=== PATIENT | male | born 1990 | race Caucasian/White ===

== ENCOUNTER 2020-08-21 18:49 | Emergency (ER) | payer BC ==
[2020-08-21 19:17] VITALS: RESP 18; TEMP 98.9
[2020-08-21] MEDS ORDERED: SODIUM CHLORIDE 0.9% 1,000 ML IV STA (20:51)
--- NOTE | 2020-08-21 20:58 | ED ---
Abdominal Pain HPI - General Chief Complaint: Abdominal Pain Stated Complaint: hernia Time Seen by Provider: 08/21/20 20:44 Source: patient Mode of arrival: ambulatory Limitations: no limitations - History of Present Illness Initial Comments: 29-year-old male presents to the emergency department with a chief complaint of a hernia. States he's developed a hernia over the last 15 years but has never done anything about it. States over the recent few months he develop increased pain and swelling to the region. States this is a ventral hernia in is e xacerbated, grows bigger in size whenever he standing or straining. Reports the swelling and pain is alleviated whenever he lays down supine. He denies any nausea vomiting or constipation. He denies any fevers or chills. - Related Data Allergies Allergy/AdvReac Type Severity Reaction Status Date / Time No Known Allergies Allergy Verified 08/21/20 19:17 Review of Systems ROS Statement: Those systems with pertinent positive or pertinent negative responses have been documented in the HPI. ROS Other: All systems not noted in ROS Statement are negative. Past Medical History Additional Past Medical History / Comment(s): hernia History of Any Multi-Drug Resistant Organisms: None Reported Additional Past Surgical History / Comment(s): sx as infant Past Psychological History: No Psychological Hx Reported Smoking Status: Current every day smoker Past Alcohol Use History: Rare Past Drug Use History: Marijuana General Exam Limitations: no limitations General appearance: alert, in no apparent distress Head exam: Present: atraumatic, normocephalic, normal inspection Eye exam: Present: normal appearance, PERRL, EOMI Pupils: Present: normal accommodation ENT exam: Present: normal exam, normal oropharynx, mucous membranes moist Neck exam: Present: normal inspection, full ROM. Absent: tenderness, lymphadenopathy Respiratory exam: Present: normal lung sounds bilaterally. Absent: respiratory distress Cardiovascular Exam: Present: regular rate, normal rhythm, normal heart sounds. Absent: systolic murmur GI/Abdominal exam: Present: soft, tenderness, hernia (Ventral hernia). Absent: distended, guarding, rebound, rigid Extremities exam: Present: normal inspection, full ROM, normal capillary refill. Absent: tenderness, pedal edema, joint swelling Back exam: Present: normal inspection, full ROM. Absent: tenderness, CVA tenderness (R), CVA tenderness (L) Neurological exam: Present: alert, oriented X3 Psychiatric exam: Present: normal affect, normal mood Skin exam: Present: warm, dry, intact, normal color Course Vital Signs 08/21/20 08/21/20 08/21/20 19:13 21:08 22:11 Temperature 98.9 F Pulse Rate 98 91 90 Respiratory 18 18 18 Rate Blood Pressure 154/102 165/89 132/89 O2 Sat by Pulse 97 95 96 Oximetry Medical Decision Making - Medical Decision Making 29-year-old male presents to the emergency department with a chief complaint of a hernia. On physical examination, definitive protrusion in the ventral abdomen. Laboratory work is unremarkable. CT of abdomen and pelvis shows large anterior abdominal wall ventral hernia containing fat. It was able to reduce it after some symptomatic relief. Patient will follow-up with Dr. snowden per request. Advised to avoid excessive abdominal straining. Strict return parameters were thoroughly discussed with patient was understanding and agreeable. Case discussed with Dr. Srivastava - Lab Data Result diagrams: 08/21/20 21:00 08/21/20 21:00 Lab Results 08/21/20 08/21/20 08/21/20 Range/Units 21:00 21:00 21:00 WBC 11.4 H (3.8-10.6) k/uL RBC 5.31 (4.30-5.90) m/uL Hgb 16.1 (13.0-17.5) gm/dL Hct 48.3 (39.0-53.0) % MCV 91.0 (80.0-100.0) fL MCH 30.4 (25.0-35.0) pg MCHC 33.3 (31.0-37.0) g/dL RDW 13.1 (11.5-15.5) % Plt Count 298 (150-450) k/uL MPV 6.5 Neutrophils % 70 % Lymphocytes % 21 % Monocytes % 5 % Eosinophils % 2 % Basophils % 1 % Neutrophils # 8.0 H (1.3-7.7) k/uL Lymphocytes # 2.4 (1.0-4.8) k/uL Monocytes # 0.6 (0-1.0) k/uL Eosinophils # 0.2 (0-0.7) k/uL Basophils # 0.1 (0-0.2) k/uL Sodium 139 (137-145) mmol/L Potassium 4.7 (3.5-5.1) mmol/L Chloride 105 (98-107) mmol/L Carbon Dioxide 27 (22-30) mmol/L Anion Gap 7 mmol/L BUN 10 (9-20) mg/dL Creatinine 0.71 (0.66-1.25) mg/dL Est GFR (CKD-EPI)AfAm >90 (>60 ml/min/1.73 sqM) Est GFR (CKD-EPI)NonAf >90 (>60 ml/min/1.73 sqM) Glucose 104 H (74-99) mg/dL Plasma Lactic Acid Pito 1.1 (0.7-2.0) mmol/L Calcium 9.5 (8.4-10.2) mg/dL Total Bilirubin 0.3 (0.2-1.3) mg/dL AST 36 (17-59) U/L ALT 38 (4-49) U/L Alkaline Phosphatase 133 H (38-126) U/L Total Protein 7.0 (6.3-8.2) g/dL Albumin 4.1 (3.5-5.0) g/dL Lipase 110 (23-300) U/L Disposition Clinical Impression: Ventral hernia Disposition: HOME SELF-CARE Condition: Stable Instructions (If sedation given, give patient instructions): Ventral Hernia (ED), Ventral Hernia Repair (DC) Additional Instructions: Follow-up with a general surgeon. Return to emergency department if symptoms worsen. Is patient prescribed a controlled substance at d/c from ED?: No Referrals: None,Stated [Primary Care Provider] - 1-2 days Nasir Snowden DO [Doctor of Osteopathic Medicine] - 1-2 days Time of Disposition: 22:48
[2020-08-21 21:25] LABS: Basophils # (A) 0.1 k/uL (0-0.2); Basophils % (A) 1 %; Eosinophils # (A) 0.2 k/uL (0-0.7); Eosinophils % (A) 2 %; HCT 48.3 % (39.0-53.0); HGB 16.1 gm/dL (13.0-17.5); Lymphocytes # (A) 2.4 k/uL (1.0-4.8); Lymphocytes % (A) 21 %; MCH 30.4 pg (25.0-35.0); MCHC 33.3 g/dL (31.0-37.0); Mean Platelet Volume 6.5; Monocytes # (A) 0.6 k/uL (0-1.0); Monocytes % (A) 5 %; Neutrophils % (A) 70 %; Platelet Count 298 k/uL (150-450); RBC 5.31 m/uL (4.30-5.90); RDW 13.1 % (11.5-15.5); WBC 11.4 k/uL (3.8-10.6)
[2020-08-21 21:28] LABS: ALT 38 U/L (4-49); AST 36 U/L (17-59); African American GFR (CKD) >90 (>60 ml/min/1.73 sqM); Albumin 4.1 g/dL (3.5-5.0); Alkaline Phosphatase 133 U/L (38-126); Anion Gap 7 mmol/L; Blood Urea Nitrogen 10 mg/dL (9-20); Calcium 9.5 mg/dL (8.4-10.2); Carbon Dioxide 27 mmol/L (22-30); Chloride 105 mmol/L (98-107); Glucose 104 mg/dL (74-99); Lipase 110 U/L (23-300); Non-African American GFR(CKD) >90 (>60 ml/min/1.73 sqM); Potassium 4.7 mmol/L (3.5-5.1); Sodium 139 mmol/L (137-145); Total Bilirubin 0.3 mg/dL (0.2-1.3)
[2020-08-21] MEDS ORDERED: MORPHINE SULFATE 4 MG/ML SYRINGE IVP STA (22:05)
[2020-08-21 22:11] VITALS: BP 132/89; PULSE 90
--- NOTE | 2020-08-21 22:35 | CT ---
EXAMINATION TYPE: CT abdomen pelvis w con DATE OF EXAM: 08/21/2020 COMPARISON: None HISTORY: abd hernia CT DLP: 2314.3 mGycm Automated exposure control for dose reduction was used. CONTRAST: Performed with IV Contrast, patient injected with 100 mL of Isovue 370. Lung bases are clear. There is no pleural effusion. Heart size is normal. There is no pericardial eff usion. Liver spleen pancreas stomach gallbladder appear intact. Bile ducts are not dilated. There is epigast kirstie ventral hernia that measures 13 x 6.5 cm and contains fat. This is adjacent to the umbilicus. The re is 3 x 2 cm umbilical hernia that contains fat. Bladder distends smoothly. There is no inguinal hernia. There is no free fluid in the pelvis. Kidneys show satisfactory contrast opacification. There is no hydronephrosis. There is no adrenal mas s. Delayed images show normal renal excretion. There is no retroperitoneal adenopathy. There is no mesenteric edema. There is no ascites or free air. There is no bowel obstruction. Appendi x appears normal. The lumbar vertebra have normal alignment. Posterior elements are intact. There is no compression fra cture. Bony pelvis is intact. The hip joints are intact. IMPRESSION: Large anterior abdominal wall ventral hernia containing fat. No bowel obstruction. Umbilical hernia. No acute abnormality of the abdomen pelvis.
== END 2020-08-21 22:58 | disposition home or self-care (01) ==
LOC: EC 18:49
DX: K43.9 Ventral hernia without obstruction or gangrene (principal); F17.200 Nicotine dependence, unspecified, uncomplicated; F12.90 Cannabis use, unspecified, uncomplicated
CPT/HCPCS: 36415; 80053; 83605; 83690; 85025; 74177; 99284; 96374; J2270; Q9967

== ENCOUNTER 2024-03-17 16:51 | Emergency (ER) | payer BC, OTHER ==
[2024-03-17 16:58] VITALS: RESP 18
--- NOTE | 2024-03-17 17:20 | ED ---
Back Pain HPI - General Chief Complaint: Back Pain/Injury Stated Complaint: back pain Time Seen by Provider: 03/17/24 17:01 Source: patient - History of Present Illness Initial Comments: 33-year-old male presenting with chief complaint of lower back pain. Patient reports that just before Court he slipped and fell getting out of his truck, his legs slipped out from underneath him and he fell onto his buttocks. He was having tailbone pain for few days but then it seemed to be improving. For the past few days the pain has been getting worse. He denies any reinjury. He denies any loss of bowel or bladder control or saddle paresthesia. He was seen urgent care yesterday and was given a steroid and muscle relaxer. He reports that the muscle relaxer is helping, he notices that within an hour after taking the steroid he feels sweaty, has a headache, and feels nauseous. No abdominal pain. No fever. Pain is worse with particular motions or positions. - Related Data Allergies Allergy/AdvReac Type Severity Reaction Status Date / Time No Known Allergies Allergy Verified 03/17/24 16:58 Review of Systems ROS Statement: Those systems with pertinent positive or pertinent negative responses have been documented in the HPI. ROS Other: All systems not noted in ROS Statement are negative. Past Medical History Additional Past Medical History / Comment(s): hernia History of Any Multi-Drug Resistant Organisms: None Reported Additional Past Surgical History / Comment(s): sx as Past Psychological History: No Psychological Hx Reported Smoking Status: Current every day smoker Past Alcohol Use History: Rare Past Drug Use History: Marijuana General Exam Limitations: no limitations General appearance: alert, in no apparent distress Head exam: Present: atraumatic, normocephalic, normal inspection Eye exam: Present: normal appearance, EOMI Neck exam: Present: normal inspection. Absent: meningismus Respiratory exam: Absent: respiratory distress Extremities exam: Present: normal inspection Back exam: Present: normal inspection, tenderness Neurological exam: Present: alert, oriented X3 Psychiatric exam: Present: normal affect, normal mood Skin exam: Present: warm, dry, normal color Course Vital Signs 03/17/24 03/17/24 16:54 19:09 Temperature 98.6 F 98.4 F Pulse Rate 103 H 98 Respiratory 18 18 Rate Blood Pressure 163/92 150/89 O2 Sat by Pulse 96 97 Oximetry Medical Decision Making - Medical Decision Making Was pt. sent in by a medical professional or institution (, [facility], [facility], urgent care, hospital, or shelter...) When possible be specific @ -No Did you speak to anyone other than the patient for history (EMS, parent, family, police, friend...)? What history was obtained from this source @ -No Did you review nursing and triage notes (agree or disagree)? Why? @ -I reviewed and agree with nursing and triage notes Were old charts reviewed (outside hosp., previous admission, EMS record, old EKG, old radiological studies, urgent care reports/EKG's, shelter records)? Report findings @ -No old charts were reviewed Differential Diagnosis (chest pain, altered mental status, abdominal pain women, abdominal pain men, vaginal bleeding, weakness, fever, dyspnea, syncope, headache, dizziness, GI bleed, back pain, seizure, CVA, palpatations, mental health, musculoskeletal)? @ - MDM Differential Back Pain: Strain, zoster, cauda equina syndrome, epidural abscess, vertebral osteomyelitis, discitis, fracture, subluxation, disc herniation, DJD, spinal stenosis, dissection, AAA, pancreatitis, peptic ulcer disease, pyelonephritis, kidney stone this is not meant to be an all-inclusive list. EKG interpreted by me (3pts min.). @ -As above X-rays interpreted by me (1pt min.). @ -X-ray shows no acute fracture. Mild multilevel disc degeneration CT interpreted by me (1pt min.). @ -None done U/S interpreted by me (1pt. min.). @ -None done What testing was considered but not performed or refused? (CT, X-rays, U/S, labs)? Why? @ -None What meds were considered but not given or refused? Why? @ -None Did you discuss the management of the patient with other professionals (professionals i.e. [facility] [employer], [facility], lab, RT, psych nurse, social sciences lecturer, cell operation supervisor, teacher, community development officer, clinical case manager)? Give summary @ -No Was smoking cessation discussed for >3mins.? @ -No Was critical care preformed (if so, how long)? @ -No Were there social determinants of health that impacted care today? How? (Homelessness, low income, unemployed, alcoholism, drug addiction, transportation, low edu. Level, literacy, decrease access to med. care, fci, rehab)? @ -No Was there de-escalation of care discussed even if they declined (Discuss DNR or withdrawal of care, Hospice)? DNR status @ -No What co-morbidities impacted this encounter? (DM, HTN, Smoking, COPD, CAD, Cancer, CVA, ARF, Chemo, Hep., AIDS, mental health diagnosis, sleep apnea, morbid obesity)? @ -None Was patient admitted / discharged? Hospital course, mention meds given and route, prescriptions, significant lab abnormalities, going to OR and other pertinent info. @ -33-year-old male presenting with chief complaint of lower back and tailbone pain. States that a few weeks ago he had a slip and fall. Pain was improving but is not getting worse again. No red flag symptoms. History and physical examination are conducted. Patient has improvement with muscle relaxers. X- rays negative for fracture. There is mild multilevel degenerative disc disease. Patient is educated on today's findings and supportive management at home. Follow-up with PCP. Report back to ER with any new or worsening symptoms. Discussed return parameters and answered all questions. Patient conveyed verbal understanding and agreed to the plan. I discussed this case in detail with my attending Dr. Ambrocio Undiagnosed new problem with uncertain prognosis? @ -No Drug Therapy requiring intensive monitoring for toxicity (Heparin, Nitro, Insulin, Cardizem)? @ -No Were any procedures done? @ -No Diagnosis/symptom? @ -Lumbar strain Acute, or Chronic, or Acute on Chronic? @ -Acute Uncomplicated (without systemic symptoms) or Complicated (systemic symptoms)? @ -Uncomplicated Side effects of treatment? @ -No Exacerbation, Progression, or Severe Exacerbation? @ -No Poses a threat to life or bodily function? How? (Chest pain, USA, OR, pneumonia, PE, COPD, DKA, ARF, appy, cholecystitis, CVA, Diverticulitis, Homicidal, Suicidal, threat to staff... and all critical care pts) @ -Low likelihood Disposition Clinical Impression: Strain of lumbar region Disposition: HOME SELF-CARE Condition: Good Instructions (If sedation given, give patient instructions): Acute Low Back Pain (ED) Additional Instructions: Follow-up with PCP. Report back to ER with any new or worsening symptoms. You may continue taking your muscle relaxer as prescribed. Take Motrin and Tylenol as needed. [id number]-[id number] lidocaine patches may be helpful as well. Is patient prescribed a controlled substance at d/c from ED?: No Referrals: Jose Lomeli MD [Primary Care Provider] - 1-2 days Time of Disposition: 18:50
--- NOTE | 2024-03-17 18:24 | XR ---
EXAMINATION TYPE: XR lumbosacral spine min 4V DATE OF EXAM: 03/17/2024 6:03 PM COMPARISON: None CLINICAL INDICATION: Male, 33 years old with history of tail bone pain; [facility] TECHNIQUE: XR lumbosacral spine min 4V - Frontal, lateral , bilateral oblique and coned in L5-S1 late ral views of the spine. FINDINGS: No evidence of any acute osseous pathology. No evidence of loss of vertebral body height i s seen. There is normal alignment of the lumbar vertebral bodies. Mild scattered disc space narrowing . Multilevel marginal osteophyte formation throughout the visualized spine. There is facet joint arth ropathy throughout the spine. Scattered at least mild neural foraminal stenosis. IMPRESSION: 1. No acute fracture. 2. Mild multilevel disc degeneration. [facility], , 03/17/2024 6:22 PM
[2024-03-17] MEDS: LIDOCAINE 4% PATCH TOPICAL ONE (19:02)
[2024-03-17 19:12] VITALS: BP 150/89; PULSE 98; TEMP 98.4
== END 2024-03-17 19:12 | disposition home or self-care (01) ==
LOC: EC 16:51
DX: S39.012A Strain of muscle, fascia and tendon of lower back, initial encounter (principal); F17.200 Nicotine dependence, unspecified, uncomplicated; W01.0XXA Fall on same level from slipping, tripping and stumbling without subsequent striking against object, initial encounter
CPT/HCPCS: 72110; 99283

== ENCOUNTER 2024-03-30 10:39 | Emergency (ER) | payer OTHER ==
[2024-03-30 11:28] LABS: Basophils % (A) 0 %; Eosinophils # (A) 0.2 k/uL (0-0.7); Eosinophils % (A) 2 %; HCT 48.1 % (39.0-53.0); HGB 15.8 gm/dL (13.0-17.5); Lymphocytes % (A) 19 %; MCH 30.6 pg (25.0-35.0); MCHC 32.9 g/dL (31.0-37.0); MCV 93.2 fL (80.0-100.0); Mean Platelet Volume 6.9; Monocytes # (A) 0.5 k/uL (0-1.0); Monocytes % (A) 5 %; Neutrophils # (A) 7.5 k/uL (1.3-7.7); Neutrophils % (A) 73 %; Platelet Count 286 k/uL (150-450); RBC 5.16 m/uL (4.30-5.90); RDW 12.5 % (11.5-15.5); WBC 10.4 k/uL (3.8-10.6)
[2024-03-30] MEDS: SODIUM CHLORIDE 0.9% 1,000 ML IV STA (11:43)
[2024-03-30] MEDS: PANTOPRAZOLE 40 MG/10 ML VIAL IVP STA (11:43)
[2024-03-30] MEDS: ONDANSETRON 4 MG/2 ML VIAL IVP STA (11:43)
[2024-03-30 11:50] LABS: INR 0.9 (<1.2); Partial Thromboplastin Time 26.2 sec (22.0-30.0); Prothrombin Time 9.9 sec (10.0-12.5)
--- NOTE | 2024-03-30 12:03 | CT ---
EXAMINATION TYPE: CT abdomen pelvis w con DATE OF EXAM: 03/30/2024 11:45 AM COMPARISON: 08/21/2020 CLINICAL INDICATION: Male, 33 years old with history of abdominal pain. Left side. Hx of large hernia , Lt sided pain, large hernia, TECHNIQUE: Contiguous axial scanning of the abdomen and pelvis following administration of 100 ml Iso ricardo 300 IV contrast. Delayed images through the kidneys and coronal/sagittal reconstructions perform ed. CT DLP: 2700 mGycm, Automated exposure control for dose reduction was used. FINDINGS: Heart normal size without pericardial effusion. Lung bases clear without pleural effusion. Liver enlarged at 19.6 cm. There may be some underlying fatty infiltration of liver. Portal venous sy stem is patent. No biliary ductal dilatation. Gallbladder, adrenal glands, kidneys, spleen, and pancreas within normal limits. There is redemonstrated midline epigastric ventral abdominal wall hernia. Hernia sac possibly measu ring up to 10.7 cm wide and 3.9 cm craniocaudal. This extends through a narrow abdominal wall defect measuring 1.3 cm. Mild fat stranding at the neck of the hernia. Not significantly changed in size. A larger supraumbilical ventral midline hernia characterized by rectus diastases up to 8.2 cm wide ve rsus 4.5 cm, previously. There is a large hernia sac measuring 22.8 x 20.5 cm versus 13.1 x 11.9 cm, previously. The hernia contains nonobstructed small bowel and mesenteric fat as well as the distal as pect of the appendix. Mild stool burden. Redundant sigmoid colon. No pericolonic inflammatory change. Mild circumference of bladder wall thickening. No abnormal fluid collection in the pelvis or pelvic l ymphadenopathy. Bones: No osseous destructive process. IMPRESSION: 1. LARGE SUPRAUMBILICAL VENTRAL MIDLINE ABDOMINAL WALL HERNIA EXTENDING THROUGH AN 8.2 CM WIDE RECTUS DIASTASIS. The diastasis previously measured 4.5 cm wide. The hernia sac contains nonobstructed smal l bowel loops. 2. Smaller ventral epigastric midline hernia containing omental fat measuring 10.7 x 3.9 cm through a narrow 1.3 cm wide abdominal wall defect. Not significantly changed. Some fat stranding at the neck of the hernia may reflect mild inflammation. 3. Mild circumferential bladder wall thickening may be chronic for the patient. Correlate to exclude cystitis. [facility], , 03/30/2024 12:01 PM
[2024-03-30 12:33] LABS: ALT 40 U/L (4-49); AST 27 U/L (17-59); African American GFR (CKD) >90 (>60 ml/min/1.73 sqM); Alkaline Phosphatase 118 U/L (38-126); Amylase 55 U/L (30-110); Anion Gap 8 mmol/L; Blood Urea Nitrogen 12 mg/dL (9-20); Calcium 9.5 mg/dL (8.4-10.2); Carbon Dioxide 25 mmol/L (22-30); Chloride 107 mmol/L (98-107); Glucose 95 mg/dL (74-99); Lipase 149 U/L (23-300); Non-African American GFR(CKD) >90 (>60 ml/min/1.73 sqM); Potassium 4.6 mmol/L (3.5-5.1); Sodium 140 mmol/L (137-145); Total Bilirubin 0.4 mg/dL (0.2-1.3); Total Protein 6.8 g/dL (6.3-8.2)
--- NOTE | 2024-03-30 12:58 | ED ---
General Adult HPI - General Chief complaint: Abdominal Pain Stated complaint: Abd pain Time Seen by Provider: 03/30/24 11:00 Source: patient, RN notes reviewed, old records reviewed Mode of arrival: ambulatory Limitations: no limitations - History of Present Illness Initial comments: Patient is a 33-year-old male with past medical history remarkable for 2 significantly large anterior wall abdominal hernias presents emergency department complaining of multiple weeks of a crampy abdominal pain that comes and goes. Currently does not have the pain. States is usually when he awakens in the morning. Presented to urgent care who recommended he come to the ER for further evaluation. Currently is being followed by a surgeon at [facility] for bariatric surgery and hernia repair. States he has follow-up soon with this surgeon. Today states he had the pain again which is why presented for further evaluation. Only significant past medical history is prior abdominal surgery at 2 weeks old for pyloric stenosis. He has no other acute complaints at this time. No change in bowel habits. No change in eating habits. Nausea but no significant emesis. No fevers or chills. No urinary complaints. At urgent care they did obtain a urine dipstick which was normal per patient. Presents for further evaluation.Patient currently asymptomatic. Patient has noticed some bright red blood in his stool occasionally over the last month but nothing recently. - Related Data Previous Rx's Medication Instructions Recorded Dicyclomine [Bentyl] 10 mg PO TID PRN 7 Days #21 capsule 03/30/24 Allergies Allergy/AdvReac Type Severity Reaction Status Date / Time No Known Allergies Allergy Verified 03/30/24 10:43 Review of Systems ROS Statement: Those systems with pertinent positive or pertinent negative responses have been documented in the HPI. Review of Systems: CONST: Denies fever EYES: Denies blurry vision ENT: Denies nasal congestion C/V: Denies Chest pain RESP: Denies shortness of breath GI: Denies abdominal pain : Denies dysuria SKIN: Denies rash. MSK: Denies joint pain. NEURO: Denies headache ROS Other: All systems not noted in ROS Statement are negative. Past Medical History Additional Past Medical History / Comment(s): hernia, Pyloric Stenosis History of Any Multi-Drug Resistant Organisms: None Reported Additional Past Surgical History / Comment(s): sx as infant Past Psychological History: No Psychological Hx Reported Smoking Status: Current every day smoker Past Alcohol Use History: Rare Past Drug Use History: Marijuana General Exam - General Exam Comments Initial Comments: General: Appears in no acute distress. HEAD: Normal with no signs of head trauma. EYES: PERRLA, EOMI, conjunctiva normal, no discharge. ENT: Hearing grossly intact, normal oropharynx. RESPIRATORY: Clear breath sounds bilaterally. No wheezes, rales, or rhonchi. C/V: Regular rate and rhythm. S1 and S2 auscultated, peripheral pulses 2+ and intact throughout ABD: Abdomen has a large ventral hernia and umbilical hernia present. No tenderness to palpation of the abdominal wall. No guarding or rebound tenderness. Distention in the hernia which is chronic otherwise soft abdomen. EXT: No obvious deformity. SKIN: No rashes or lesions observed on exposed skin. NEURO: Alert and oriented x 4. Limitations: no limitations Course Vital Signs 03/30/24 10:40 Temperature 98.2 F Pulse Rate 83 Respiratory 20 Rate Blood Pressure 163/109 O2 Sat by Pulse 99 Oximetry Medical Decision Making - Medical Decision Making Was pt. sent in by a medical professional or institution (, PA, MIDDLE SCHOOL GUIDANCE COUNSELOR, urgent care, hospital, or alf...) When possible be specific @ -No Did you speak to anyone other than the patient for history (EMS, parent, family, police, friend...)? What history was obtained from this source @ -No Did you review nursing and triage notes (agree or disagree)? Why? @ -I reviewed and agree with nursing and triage notes Were old charts reviewed (outside hosp., previous admission, EMS record, old EKG , old radiological studies, urgent care reports/EKG's, alf records)? Report findings @ -No old charts were reviewed Differential Diagnosis (chest pain, altered mental status, abdominal pain women, abdominal pain men, vaginal bleeding, weakness, fever, dyspnea, syncope, headache, dizziness, GI bleed, back pain, seizure, CVA, palpatations, mental health, musculoskeletal)? @ -Differential Abdominal Pain Men: Appendicitis, cholecystitis, diverticulosis, ischemic bowel, pancreatitis, hep atitis, UTI, gastroenteritis, AAA, incarcerated hernia, bowel obstruction, constipation, inflammatory bowel, hepatitis, peptic ulcer disease, splenic infarction, perforated viscus, testicular torsion, this is not meant to be an all-inclusive list EKG interpreted by me (3pts min.). @ -None done X-rays interpreted by me (1pt min.). @ -None done CT interpreted by me (1pt min.). @ -CT abdomen pelvis revealed the 2 large hernias that are relatively uncomplicated. No obvious evidence of small bowel obstruction there may be some mild circumferential bladder wall thickening that may be chronic. U/S interpreted by me (1pt. min.). @ -None done What testing was considered but not performed or refused? (CT, X-rays, U/S, labs)? Why? @ -None What meds were considered but not given or refused? Why? @ -None Did you discuss the management of the patient with other professionals (professionals i.e. , PA, MIDDLE SCHOOL GUIDANCE COUNSELOR, lab, RT, psych nurse, social media project manager, cosmetics counter manager, teacher, business banking officer, pillowcase folder)? Give summary @ -No Was smoking cessation discussed for >3mins.? @ -No Was critical care preformed (if so, how long)? @ -No Were there social determinants of health that impacted care today? How? (H omelessness, low income, unemployed, alcoholism, drug addiction, transportation, low edu. Level, literacy, decrease access to med. care, nursing home, rehab)? @ -No Was there de-escalation of care discussed even if they declined (Discuss DNR or withdrawal of care, Hospice)? DNR status @ -No What co-morbidities impacted this encounter? (DM, HTN, Smoking, COPD, CAD, Cancer, CVA, ARF, Chemo, Hep., AIDS, mental health diagnosis, sleep apnea, morbid obesity)? @ -Chronic abdominal wall hernias Was patient admitted / discharged? Hospital course, mention meds given and route, prescriptions, significant lab abnormalities, going to OR and other pertinent info. @ -Patient presents to the emergency department complaining of acute on chronic abdominal pain. Has a history of chronic hernias. Currently asymptomatic. Vital signs are within acceptable limits. We will obtain abdominal laboratory studies as well as CT abdomen pelvis. He declines analgesia medications. He will be given IV fluids, Zofran, Protonix. Urinalysis was done at urgent care and he states it was normal. Laboratory studies all returned within acceptable limits. This includes normal lactic acid. CT imaging reveals the 2 known large ventral wall hernias that are going to be addressed by his surgeon. No evidence of strangulation or other complication. Patient does have a thickened bladder wall which is likely chronic. He has no cystitis symptoms and urinalysis at urgent care was within normal limits. Discussed results with patient. He remains asymptomatic. He will be given a prescription for Bentyl instruction and follow-up with the surgeon in the next week or so. Follow-up with PCP in the next 1 to 3 days. Return if any worsening symptoms. I will provide the patient with a prescription for Bentyl. I instructed the patient to follow up with their PCP in the next 1-3 days.. I explained that the patient should return to the emergency department if they experience any worsening symptoms. Strict return precautions were discussed with the patient. The patient expressed understanding of these instructions. I answered all questions that the patient had. The patient was discharged home in good condition with their prescriptions and follow up information. Undiagnosed new problem with uncertain prognosis? @ -No Drug Therapy requiring intensive monitoring for toxicity (Heparin, Nitro, Insulin, Cardizem)? @ -No Were any procedures done? @ -No Diagnosis/symptom? @ -Abdominal pain of unknown etiology, chronic hernias Acute, or Chronic, or Acute on Chronic? @ -Acute Uncomplicated (without systemic symptoms) or Complicated (systemic symptoms)? @ -Uncomplicated Side effects of treatment? @ -No Exacerbation, Progression, or Severe Exacerbation? @ -No Poses a threat to life or bodily function? How? (Chest pain, [place], [place], pneumonia, PE, COPD, DKA, ARF, appy, cholecystitis, CVA, Diverticulitis, Homicidal, Suicidal, threat to staff... and all critical care pts) @ -Unlikely at this time - Lab Data Result diagrams: 03/30/24 11:18 03/30/24 11:18 Lab Results 03/30/24 03/30/24 03/30/24 Range/Units 11:18 11:18 11:18 WBC 10.4 (3.8-10.6) k/uL RBC 5.16 (4.30-5.90) m/uL Hgb 15.8 (13.0-17.5) gm/dL Hct 48.1 (39.0-53.0) % MCV 93.2 (80.0-100.0) fL MCH 30.6 (25.0-35.0) pg MCHC 32.9 (31.0-37.0) g/dL RDW 12.5 (11.5-15.5) % Plt Count 286 (150-450) k/uL MPV 6.9 Neutrophils % 73 % Lymphocytes % 19 % Monocytes % 5 % Eosinophils % 2 % Basophils % 0 % Neutrophils # 7.5 (1.3-7.7) k/uL Lymphocytes # 2.0 (1.0-4.8) k/uL Monocytes # 0.5 (0-1.0) k/uL Eosinophils # 0.2 (0-0.7) k/uL Basophils # 0.0 (0-0.2) k/uL PT 9.9 L (10.0-12.5) sec INR 0.9 (<1.2) APTT 26.2 (22.0-30.0) sec Sodium 140 (137-145) mmol/L Potassium 4.6 (3.5-5.1) mmol/L Chloride 107 (98-107) mmol/L Carbon Dioxide 25 (22-30) mmol/L Anion Gap 8 mmol/L BUN 12 (9-20) mg/dL Creatinine 0.79 (0.66-1.25) mg/dL Est GFR (CKD-EPI)AfAm >90 (>60 ml/min/1.73 sqM) Est GFR (CKD-EPI)NonAf >90 (>60 ml/min/1.73 sqM) Glucose 95 (74-99) mg/dL Plasma Lactic Acid Pito (0.7-2.0) mmol/L Calcium 9.5 (8.4-10.2) mg/dL Total Bilirubin 0.4 (0.2-1.3) mg/dL AST 27 (17-59) U/L ALT 40 (4-49) U/L Alkaline Phosphatase 118 (38-126) U/L Total Protein 6.8 (6.3-8.2) g/dL Albumin 4.0 (3.5-5.0) g/dL Amylase 55 (30-110) U/L Lipase 149 (23-300) U/L 03/30/24 Range/Units 11:18 WBC (3.8-10.6) k/uL RBC (4.30-5.90) m/uL Hgb (13.0-17.5) gm/dL Hct (39.0-53.0) % MCV (80.0-100.0) fL MCH (25.0-35.0) pg MCHC (31.0-37.0) g/dL RDW (11.5-15.5) % Plt Count (150-450) k/uL MPV Neutrophils % % Lymphocytes % % Monocytes % % Eosinophils % % Basophils % % Neutrophils # (1.3-7.7) k/uL Lymphocytes # (1.0-4.8) k/uL Monocytes # (0-1.0) k/uL Eosinophils # (0-0.7) k/uL Basophils # (0-0.2) k/uL PT (10.0-12.5) sec INR (<1.2) APTT (22.0-30.0) sec Sodium (137-145) mmol/L Potassium (3.5-5.1) mmol/L Chloride (98-107) mmol/L Carbon Dioxide (22-30) mmol/L Anion Gap mmol/L BUN (9-20) mg/dL Creatinine (0.66-1.25) mg/dL Est GFR (CKD-EPI)AfAm (>60 ml/min/1.73 sqM) Est GFR (CKD-EPI)NonAf (>60 ml/min/1.73 sqM) Glucose (74-99) mg/dL Plasma Lactic Acid Pito 1.0 (0.7-2.0) mmol/L Calcium (8.4-10.2) mg/dL Total Bilirubin (0.2-1.3) mg/dL AST (17-59) U/L ALT (4-49) U/L Alkaline Phosphatase (38-126) U/L Total Protein (6.3-8.2) g/dL Albumin (3.5-5.0) g/dL Amylase (30-110) U/L Lipase (23-300) U/L Disposition Clinical Impression: Hernia, Abdominal pain of unknown etiology Disposition: HOME SELF-CARE Condition: Good Instructions (If sedation given, give patient instructions): Acute Abdominal Pain (ED) Additional Instructions: Follow-up with your surgeon regarding your abdominal hernias and complete surgery. No clear diagnosis at this time. Return if worsening symptoms. Follow-up within the next 1 to 3 days. Prescriptions: Dicyclomine [Bentyl] 10 mg PO TID PRN 7 Days #21 capsule PRN Reason: Pain Is patient prescribed a controlled substance at d/c from ED?: No Referrals: Jose Lomeli MD [Primary Care Provider] - 1-2 days Time of Disposition: 12:57
[2024-03-30 14:00] VITALS: BP 134/78; PULSE 60; RESP 18; TEMP 98.9
== END 2024-03-30 14:09 | disposition home or self-care (01) ==
LOC: EC 10:39
DX: K43.9 Ventral hernia without obstruction or gangrene (principal); F17.200 Nicotine dependence, unspecified, uncomplicated
CPT/HCPCS: 36415; 80053; 82150; 83605; 83690; 85025; 85610; 85730; 74177; 99284; 96374; 96375; 96361; J2405; Q9967; J2470